=== PATIENT | male | born 1990 | race African-American/Black ===

== ENCOUNTER 2021-06-03 20:45 | Emergency (ER) | payer OTHER ==
[2021-06-03 21:27] LABS: Bilirubin Neg (Negative); Blood, Urine 10 (Negative); Clarity Slightly Cloudy (Clear); Glucose, Urine (Dipstick) Normal (Negative); Ketone, Urine Negative (Negative); Leukocyte 500 (Negative); Nitrite Negative (Negative); Protein, Urine (Dipstick) 30 mg/dl (Neg-Trace)
[2021-06-03 21:42] LABS: Squamous Epithelial 0-3 HPF (0-3); WBC/HPF Greater Than 50 HPF (0-3)
[2021-06-03 21:43] LABS: Bacteria/HPF 1+ HPF (None Seen)
[2021-06-03] MEDS ORDERED: cefTRIAXone\\ROCEPHIN 500 MG VIAL ONE (22:00)
[2021-06-03] MEDS ORDERED: Lidocaine 1% MPF 2 ML VIAL ONE (22:00)
[2021-06-04 16:09] LABS: Chlam.trachomatis by PCR,Urine Not Detected (NotDetected)
== END 2021-06-03 20:55 | disposition home or self-care (01) ==
LOC: CSHERS 20:45
DX: A64 Unspecified sexually transmitted disease (principal); K08.89 Other specified disorders of teeth and supporting structures; R36.9 Urethral discharge, unspecified
CPT/HCPCS: 81003; 81015; 87491; 87591; 96372; 99283; J0696

== ENCOUNTER 2021-11-23 11:36 | Emergency (ER) | payer OTHER ==
[2021-11-23] MEDS ORDERED: Sterile Water 10 ML ONE (12:47)
[2021-11-23] MEDS ORDERED: cefTRIAXone\\ROCEPHIN 500 MG VIAL ONE (12:47)
[2021-11-23] MEDS ORDERED: Azithromycin 250 MG TAB ONE (12:48)
[2021-11-24 01:29] LABS: Chlam.trachomatis by PCR,Urine Not Detected (NotDetected)
== END 2021-11-23 13:11 | disposition home or self-care (01) ==
LOC: CSHERS 11:36
DX: N34.2 Other urethritis (principal); F17.210 Nicotine dependence, cigarettes, uncomplicated
CPT/HCPCS: 87491; 87591; 96372; 99283; J0696